=== PATIENT | female | born 1975 | race Caucasian/White ===

== ENCOUNTER 2017-11-14 17:18 | Outpatient (CLI) | END 2017-11-14 18:43 | disposition short-term general hospital (02) | LOC: AMBL 17:18 | PROVIDERS: ATTEND Internal Medicine Geriatric Medicine | DX: R07.89 Other chest pain (principal); S30.1XXA Contusion of abdominal wall, initial encounter; S40.011A Contusion of right shoulder, initial encounter; S60.022A Contusion of left index finger without damage to nail, initial encounter; S50.812A Abrasion of left forearm, initial encounter; S50.811A Abrasion of right forearm, initial encounter; R11.0 Nausea; V89.2XXA Person injured in unspecified motor-vehicle accident, traffic, initial encounter ==